=== PATIENT | female | born 1995 | race African-American/Black ===

== ENCOUNTER 2020-02-24 21:51 | Emergency (ER) | payer OTHER ==
[~2020-02-24] VITALS: Ht 160 cm; Wt 49.9 kg
[2020-02-24 23:32] LABS: ABSOLUTE NEUTROPHILS 6.7 thou/uL (1.4-8.2); BASOPHILS 0.7 % (0.0-2.0); HEMATOCRIT 37.2 % (37.0-47.0); HEMOGLOBIN 12.3 gm/dL (12.0-15.0); LYMPHOCYTES 17.5 % (24.0-44.0); MCV 82.1 fL (80.0-100.0); MONOCYTES 8.6 % (1.0-8.0); PLATELET COUNT 274 thou/uL (150-400); POLYS 73.2 % (36.0-66.0); RBC 4.54 mil/uL (4.20-5.00); RDW 19.1 % (10.5-14.5); WBC 9.2 thou/uL (4.0-11.0)
[2020-02-24 23:37] LABS: CALCIUM 8.7 mg/dL (8.5-10.1); CREATININE 0.7 mg/dL (0.6-1.0); POTASSIUM 3.4 mmol/L (3.5-5.1)
[2020-02-24 23:44] LABS: ALBUMIN 3.5 g/dL (3.4-5.0); TOTAL BILIRUBIN 0.2 mg/dL (0.2-1.0); TOTAL PROTEIN 7.9 g/dL (6.4-8.2)
[2020-02-25 00:12] LABS: URINE BILIRUBIN 1+ (Negative); URINE BLOOD 3+ (Negative); URINE CLARITY SL CLOUDY; URINE COLOR YELLOW; URINE GLUCOSE-RANDOM* NEGATIVE (Negative); URINE KETONES 3+ (Negative); URINE LEUKOCYTES-REFLEX NEGATIVE (Negative); URINE NITRITE-REFLEX NEGATIVE (Negative); URINE PROTEIN (DIPSTICK) 2+ (Negative); URINE SPECIFIC GRAVITY 1.025 (1.005-1.035)
[2020-02-25 00:26] LABS: BACTERIA-REFLEX 1-9 Few /HPF (None Seen); CASTS None Seen /LPF (None Seen); CRYSTALS None Seen /LPF (None Seen); MUCUS >6 Heavy strn/LPF (None Seen); SQUAMOUS 4-10 Moderate /LPF (0-3); URINE RBC >20 Many /HPF (0-2); URINE WBC-REFLEX 0-5 Rare /HPF (0-5)
[2020-02-25 02:07] VITALS: BP 107/54
== END 2020-02-25 02:04 | disposition home or self-care (01) ==
LOC: ER 21:51
PROVIDERS: Student in an Organized Health Care Education/Training Program
DX: F12.988 Cannabis use, unspecified with other cannabis-induced disorder (principal); R11.2 Nausea with vomiting, unspecified; F17.210 Nicotine dependence, cigarettes, uncomplicated

== ENCOUNTER 2020-06-06 04:45 | Emergency (ER) | payer OTHER ==
[~2020-06-06] VITALS: Ht 160 cm; Wt 49.9 kg
[2020-06-06 05:33] LABS: BASOPHILS 0.2 % (0.0-2.0); HEMATOCRIT 42.9 % (37.0-47.0); HEMOGLOBIN 13.5 gm/dL (12.0-15.0); LYMPHOCYTES 10.7 % (24.0-44.0); MCH 27.4 pg (26.0-34.0); MCHC 31.4 g/dL (28.0-37.0); MCV 87.4 fL (80.0-100.0); MONOCYTES 4.8 % (1.0-8.0); PLATELET COUNT 127 thou/uL (150-400); POLYS 84.3 % (36.0-66.0); RBC 4.91 mil/uL (4.20-5.00); RDW 17.2 % (10.5-14.5); WBC 7.2 thou/uL (4.0-11.0)
[2020-06-06 05:41] LABS: CALCIUM 9.4 mg/dL (8.5-10.1); CREATININE 0.6 mg/dL (0.6-1.0); POTASSIUM 4.3 mmol/L (3.5-5.1)
[2020-06-06 05:42] LABS: MAGNESIUM 2.2 mg/dL (1.8-2.4)
[2020-06-06] MEDS ORDERED: PYRIDOXINE HCL25 MG PO (07:26)
[2020-06-06 07:38] VITALS: BP 124/79
== END 2020-06-06 18:46 | disposition home or self-care (01) ==
LOC: ER 04:45
PROVIDERS: Emergency Medicine
DX: O21.9 Vomiting of pregnancy, unspecified (principal); R10.9 Unspecified abdominal pain; O99.331 Smoking (tobacco) complicating pregnancy, first trimester; Z3A.01 Less than 8 weeks gestation of pregnancy

== ENCOUNTER 2020-06-07 02:48 | Emergency (ER) | payer OTHER ==
[~2020-06-07] VITALS: Ht 160 cm; Wt 49.9 kg
--- NOTE | ~2020-06-07 | EMS ---
[address] [address] EMS Patient Care Report Name: CHRIS ZELAYA Room #: DEP Geovani#: [id number] Admission: 06/07/20 Attend Phys: Discharge: 06/07/20 Date of : [birth year] Report #: [id number] THIS REPORT FOR: //name// Report Transmitted: 06/07/2020 03:52 EMS Care Summary [place], [place]/[facility] Incident [id number] @ 06/07/2020 02:20 Incident Location [address] [place] [address] Patient CRHIS ZELAYA Female, 24 Years 1995 Patient Address [address] [place] [address] Patient History None Reported, Patient Allergies No known allergies, Patient Medications None Reported, Chief Complaint nausea Disposition Transported No Lights/[place] Dispatch Reason Abdominal Pain/Problems Transported To [facility] Narrative pt met ems at door and was walking to ambulance. pt a&ox4 gcs 15 and did not present in apparent distress. pt requested to be transported to [facility] for nausea and vomiting x2 days. pt stated she was seen at [facility] er yesterday 06/06/2020 for the same complaint and stated "they didnt do anything". pt walked into [address] [address] EMS Patient Care Report Name: CHRIS ZELAYA Room #: DEP COLLINS Olivo#: [id number] Admission: 06/07/20 Attend Phys: Discharge: 06/07/20 Date of : [birth year] Report #: [id number] ambulance. pt was transferred onto ems cot and was secured in a semi fowlers position without incident. pt stated she is 6wks gestation. pt was transported non emergent. transport was uneventful and pt rested on ems cot. pt was on the phone most of transport. pt care was transferred to appropriate staff and ems goes back in service. pts phone and dry pan charger were left with pt. [facility] staff reported pt was seen x2 on 06/06/2020 for the same complaint. Initial Vitals @02:32P: 80,R: 20,BP: 118/74,Pain: 0/10,GCS: 15,SpO2: 97,Revised Trauma: 12, @02:43P: 80,R: 20,BP: 116/74,GCS: 15,SpO2: 98,Revised Trauma: 12, Assessments @02:32MENTAL:No Abnormalities,SKIN:No Abnormalities,HEENT:Head/Face: No Abnormalities,Eyes: No Abnormalities,Neck/Airway: No Abnormalities,LUNG SOUNDS:General: No Abnormalities,Left Upper: No Abnormalities,Right Upper: No Abnormalities,Left Lower: No Abnormalities,Right Lower: No Abnormalities,ABDOMEN:General: No Abnormalities,Left Upper: No Abnormalities,Right Upper: No Abnormalities,Left Lower: No Abnormalities,Right Lower: No Abnormalities,PELVIS//GI:No Abnormalities,EXTREMITIES:Left Arm: No Abnormalities,Right Arm: No Abnormalities,Left Leg: No Abnormalities,Right Leg: No Abnormalities,PULSE:NEURO:No Abnormalities,@02:38MENTAL:No Abnormalities,SKIN:No Abnormalities,HEENT:Head/Face: No Abnormalities,Eyes: No Abnormalities,Neck/Airway: No Abnormalities,LUNG SOUNDS:General: No Abnormalities,Left Upper: No Abnormalities,Right Upper: No Abnormalities,Left Lower: No Abnormalities,Right Lower: No Abnormalities,ABDOMEN:General: No Abnormalities,Left Upper: No Abnormalities,Right Upper: No Abnormalities,Left Lower: No Abnormalities,Right Lower: No Abnormalities,PELVIS//GI:No Abnormalities,EXTREMITIES:Left Arm: No Abnormalities,Right Arm: No Abnormalities,Left Leg: No Abnormalities,Right Leg: No Abnormalities,PULSE:NEURO:No Abnormalities, Impression Abdominal Pain Procedures @02:32ALS AssessmentResponse: UnchangedSucceeded Timeline 02:19,Call Received 02:19,Dispatch Notified 02:20,Dispatched 02:22,En Route 02:31,On Scene 02:32,At Patient 02:32,ALS Assessment,Response: UnchangedSucceeded, 02:32,BP: 118/74 M,PULSE: 80,RR: 20 R,SPO2: 97 Ox,ETCO2: ,BG: ,PAIN: 0,GCS: 15, [facility] [address] [place] [address] EMS Patient Care Report Name: ZELAYACHRIS KWON Room #: DEP Geovani#: [id number] Admission: 06/07/20 Attend Phys: Discharge: 06/07/20 Date of : [birth year] Report #: [id number] 02:34,Depart Scene 02:43,BP: 116/74 M,PULSE: 80,RR: 20 R,SPO2: 98 Ox,ETCO2: ,BG: ,PAIN: ,GCS: 15, 02:46,At Destination 02:53,Call Closed Disclaimer v1.1 Copyright 2020 [employer] This EMS Care Summary contains data elements from the applicable legal record (which may be displayed differently). It is designed to provide pertinent information for the following purposes: continuity of care, clinical quality, and state data reporting. The complete legal record is available to ED staff and administrators of the receiving hospital in [employer]'s Patient Tracker. All data is provided "as is."
--- NOTE | ~2020-06-07 | EMS ---
[address] [address] EMS Patient Care Report Name: CHRIS ZELAYA Room #: DEP Geovani#: [id number] Admission: 06/07/20 Attend Phys: Discharge: 06/07/20 Date of : [birth year] Report #: [id number] THIS REPORT FOR: //name// Report Transmitted: 06/07/2020 04:23 EMS Care Summary [place], [place]/[facility] Incident [id number] @ 06/07/2020 02:20 Incident Location [address] [place] [address] Patient CHRIS ZELAYA Female, 24 Years 1995 Patient Address [address] [place] [address] Patient History None Reported, Patient Allergies No known allergies, Patient Medications None Reported, Chief Complaint nausea Disposition Transported No Lights/[place] Dispatch Reason Abdominal Pain/Problems Transported To [facility] Narrative pt met ems at door and was walking to ambulance. pt a&ox4 gcs 15 and did not present in apparent distress. pt requested to be transported to [facility] for nausea and vomiting x2 days. pt stated she was seen at [facility] er yesterday 06/06/2020 for the same complaint and stated "they didnt do anything". pt walked into [address] [address] EMS Patient Care Report Name: CHRIS ZELAYA Room #: DEP COLLINS Olivo#: [id number] Admission: 06/07/20 Attend Phys: Discharge: 06/07/20 Date of : [birth year] Report #: [id number] ambulance. pt was transferred onto ems cot and was secured in a semi fowlers position without incident. pt stated she is 6wks gestation. pt was transported non emergent. transport was uneventful and pt rested on ems cot. pt was on the phone most of transport. pt care was transferred to appropriate staff and ems goes back in service. pts phone and senior engineering tech were left with pt. [facility] staff reported pt was seen x2 on 06/06/2020 for the same complaint. Initial Vitals @02:32P: 80,R: 20,BP: 118/74,Pain: 0/10,GCS: 15,SpO2: 97,Revised Trauma: 12, @02:43P: 80,R: 20,BP: 116/74,GCS: 15,SpO2: 98,Revised Trauma: 12, Assessments @02:32MENTAL:No Abnormalities,SKIN:No Abnormalities,HEENT:Head/Face: No Abnormalities,Eyes: No Abnormalities,Neck/Airway: No Abnormalities,LUNG SOUNDS:General: No Abnormalities,Left Upper: No Abnormalities,Right Upper: No Abnormalities,Left Lower: No Abnormalities,Right Lower: No Abnormalities,ABDOMEN:General: No Abnormalities,Left Upper: No Abnormalities,Right Upper: No Abnormalities,Left Lower: No Abnormalities,Right Lower: No Abnormalities,PELVIS//GI:No Abnormalities,EXTREMITIES:Left Arm: No Abnormalities,Right Arm: No Abnormalities,Left Leg: No Abnormalities,Right Leg: No Abnormalities,PULSE:NEURO:No Abnormalities,@02:38MENTAL:No Abnormalities,SKIN:No Abnormalities,HEENT:Head/Face: No Abnormalities,Eyes: No Abnormalities,Neck/Airway: No Abnormalities,LUNG SOUNDS:General: No Abnormalities,Left Upper: No Abnormalities,Right Upper: No Abnormalities,Left Lower: No Abnormalities,Right Lower: No Abnormalities,ABDOMEN:General: No Abnormalities,Left Upper: No Abnormalities,Right Upper: No Abnormalities,Left Lower: No Abnormalities,Right Lower: No Abnormalities,PELVIS//GI:No Abnormalities,EXTREMITIES:Left Arm: No Abnormalities,Right Arm: No Abnormalities,Left Leg: No Abnormalities,Right Leg: No Abnormalities,PULSE:NEURO:No Abnormalities, Impression Abdominal Pain Procedures @02:32ALS AssessmentResponse: UnchangedSucceeded Timeline 02:19,Call Received 02:19,Dispatch Notified 02:20,Dispatched 02:22,En Route 02:31,On Scene 02:32,At Patient 02:32,ALS Assessment,Response: UnchangedSucceeded, 02:32,BP: 118/74 M,PULSE: 80,RR: 20 R,SPO2: 97 Ox,ETCO2: ,BG: ,PAIN: 0,GCS: 15, [facility] [address] [place] [address] EMS Patient Care Report Name: ZELAYACHRIS KWON Room #: DEP Geovani#: [id number] Admission: 06/07/20 Attend Phys: Discharge: 06/07/20 Date of : [birth year] Report #: [id number] 02:34,Depart Scene 02:43,BP: 116/74 M,PULSE: 80,RR: 20 R,SPO2: 98 Ox,ETCO2: ,BG: ,PAIN: ,GCS: 15, 02:46,At Destination 02:53,Call Closed Disclaimer v1.1 Copyright 2020 [employer] This EMS Care Summary contains data elements from the applicable legal record (which may be displayed differently). It is designed to provide pertinent information for the following purposes: continuity of care, clinical quality, and state data reporting. The complete legal record is available to ED staff and administrators of the receiving hospital in [employer]'s Patient Tracker. All data is provided "as is."
[~2020-06-07 02:48] MED LIST: PYRIDOXINE HCL25 MG PO
[2020-06-07 04:35] LABS: URINE BILIRUBIN 1+ (Negative); URINE BLOOD NEGATIVE (Negative); URINE CLARITY CLEAR; URINE COLOR YELLOW; URINE GLUCOSE-RANDOM* NEGATIVE (Negative); URINE KETONES 1+ (Negative); URINE LEUKOCYTES-REFLEX TRACE (Negative); URINE NITRITE-REFLEX NEGATIVE (Negative); URINE PROTEIN (DIPSTICK) TRACE (Negative); URINE SPECIFIC GRAVITY 1.025 (1.005-1.035); URINE UROBILINOGEN 0.2 E.U./dl (0.2-1.0)
[2020-06-07 04:50] VITALS: BP 127/85
== END 2020-06-07 04:50 | disposition home or self-care (01) ==
LOC: ER 02:48
PROVIDERS: Emergency Medicine
DX: O21.8 Other vomiting complicating pregnancy (principal); R10.9 Unspecified abdominal pain; O99.331 Smoking (tobacco) complicating pregnancy, first trimester; F17.210 Nicotine dependence, cigarettes, uncomplicated; Z3A.01 Less than 8 weeks gestation of pregnancy; Z79.899 Other long term (current) drug therapy